=== PATIENT | female | born 1975 | race Two or more races ===

== ENCOUNTER 2018-10-25 16:07 | Emergency (ER) | payer SELFPAY ==
[~2018-10-25] VITALS: Ht 165.1 cm; Wt 60.0 kg
[2018-10-25 16:49] VITALS: BP 114/81
== END 2018-10-25 18:53 | disposition home or self-care (01) ==
LOC: ER 16:07
DX: Z04.89 Encounter for examination and observation for other specified reasons (principal); F41.9 Anxiety disorder, unspecified; Z98.1 Arthrodesis status; Z98.890 Other specified postprocedural states
CPT/HCPCS: 99281